=== PATIENT | male | born 1970 | race African-American/Black ===

== ENCOUNTER 2018-05-03 12:34 | Inpatient (IN) | payer OTHER ==
[2018-05-03] VITALS (8 sets, daily range): BP systolic 139–155; BP diastolic 83–95
[~2018-05-03] VITALS: Ht 185.4 cm; Wt 97.9 kg
[~2018-05-03 12:34] MED LIST: ATIVAN1 MG PO; Aspirin PO; NAPROSYN500 MG PO; NAPROXEN500 MG PO; PERCOCET 5/31 TABLET PO; TYLENOL WITH C1 EACH PO; Vicodin,Norco 5/325 PO; ZOFRAN4 MG PO
[2018-05-03 13:16] LABS: COMMENTS - BLOOD GASES C+; DEVICE VENT; SITE LR
[2018-05-03 13:17] LABS: FI02 50 %; MECHANICAL RATE 15 resp/min; MODE AC; PCO2 58 mm Hg (35-45); PEEP 5 CM/H20; PO2 143 mm Hg (80-100); TIDAL VOLUME 500 ML; TOTAL RESP RATE 15 resp/min
[2018-05-03 13:18] LABS: BASE EXCESS -7.6 mEq/L (-3 to +3); BICARBONATE 21.6 mEq/L (22-26); CARBOXY HGB 2.1 % (0-5); METHEMOGLOBIN 1.1 % (0-1.5)
[2018-05-03 13:19] LABS: pH 7.18 (7.35-7.45)
[2018-05-03 13:23] LABS: BASOPHIL (%) 0.2 % (0-1); EOSINOPHIL (%) 0 % (0-5); HEMATOCRIT 43.4 % (38.0-50.0); HEMOGLOBIN 14.5 G/DL (12.5-16.6); IMMATURE GRANULOCYTE (%) 0.5 % (0.0-0.7); LYMPHOCYTE (%) 6.3 % (15-42); LYMPHOCYTE COUNT 0.7 K/uL (1.0-2.8); MCH 28.5 PG (29.0-34.0); MCHC 33.4 G/DL (30.0-36.0); MCV 85.4 FL (86-99); MONOCYTE (%) 4.4 % (3-12); MONOCYTE COUNT 0.5 K/uL (0-0.8); NEUTROPHIL (%) 88.6 % (45-76); NEUTROPHIL COUNT 10.4 K/uL (1.8-6.4); PLATELET COUNT 177 K/uL (156-360); RBC DIS.WIDTH-SD 43.8 % (39-53); RED BLOOD COUNT 5.08 M/uL (4.00-5.50); WHITE BLOOD COUNT 11.8 K/uL (4.1-10.2)
[2018-05-03 13:29] LABS: INTER. NORMALIZED RATIO 1.1
[2018-05-03 13:35] LABS: ALBUMIN 4.2 g/dL (3.2-4.8); CHLORIDE 106 mEq/L (99-109); POTASSIUM 3.4 mEq/L (3.7-5.4); SODIUM 142 mEq/L (136-147)
[2018-05-03 13:36] LABS: MAGNESIUM 1.8 mg/dL (1.3-2.7)
[2018-05-03 13:38] LABS: AMPHETAMINE NEGATIVE (500 ng/mL); BARBITURATES NEGATIVE (200 ng/mL); BENZODIAZEPINES NEGATIVE (150 ng/mL); BUPRENORPHINE NEGATIVE (10 ng/mL); COCAINE NEGATIVE (150 ng/mL); METHADONE NEGATIVE (200 ng/mL); METHAMPHETAMINE NEGATIVE (500 ng/mL); OPIATES (MORPHINE) NEGATIVE (100 ng/mL); OXYCODONE NEGATIVE (100 ng/mL); PHENCYCLIDINE NEGATIVE (25 ng/mL); PROPOXYPHENE NEGATIVE (300 ng/mL); THC CANNABINOIDS PRESUMPTIVE POSITIVE (50 ng/mL); TRICYCLIC ANTIDEPRESSANTS NEGATIVE (300 ng/mL)
[2018-05-03 13:38] LABS: GLUCOSE 128 mg/dL (70-99); TOTAL PROTEIN 7.4 g/dL (6.4-8.3)
[2018-05-03 13:39] LABS: TOTAL BILIRUBIN 0.4 mg/dL (0.0-1.0)
[2018-05-03 13:40] LABS: SERUM ETHYL ALCOHOL < 10 mg/dL
[2018-05-03 13:41] LABS: ALKALINE PHOSPHATASE 65 IU/L (3-129); CREATININE 0.9 mg/dL (0.6-1.3); GFR ESTIMATE (CALCULATED) > 59 mL/min/ (58.99-99999); PHOSPHORUS 2.1 mg/dL (2.5-4.9)
[2018-05-03 13:41] LABS: APPEARANCE CLEAR ((CLEAR)); BILIRUBIN NEGATIVE; BLOOD MODERATE; COLOR STRAW ((YELLOW)); GLUCOSE (STRIP) NEGATIVE; KETONES NEGATIVE; LEUKOCYTES NEGATIVE; NITRITE NEGATIVE; PROTEIN (STRIP) 100; SPECIFIC GRAVITY 1.013 (1.000-1.030); UROBILINOGEN 0.2 MG/DL (0.2-1.0)
[2018-05-03 13:42] LABS: UREA NITROGEN (BUN) 10 mg/dL (9-23)
[2018-05-03 13:43] LABS: AST (GOT) 32 IU/L (2-34)
[2018-05-03 13:44] LABS: ACETAMINOPHEN (TYLENOL) < 10 mcg/mL (10-30); ALT (GPT) 30 IU/L (3-49); TROP-I INTERPRETATION NEGATIVE; TROPONIN-I 0.01 ng/mL (0.0-0.30)
[2018-05-03 13:45] LABS: BACTERIA RARE /HPF; EPITHELIAL CELLS RARE /HPF; HYALINE CASTS 0-5 /LPF; MUCUS TRACE /LPF; RED BLOOD CELLS 0-5 /HPF (0-5); UCUL ADDED? NO; WHITE BLOOD CELLS 0-5 /HPF (0-5)
[2018-05-03 13:50] LABS: CK-MB 9.3 ng/mL (0.0-4.9)
[2018-05-03 14:31] LABS: SALICYLATE < 3.0 MG/DL (15-30)
[2018-05-03 14:43] LABS: CKMB RELATIVE INDEX 1.3 (0.0-3.9); CREATINE KINASE 692 IU/L (1-294); TOTAL CK 692 IU/L (1-294)
[2018-05-03] MEDS ORDERED: VIAGRA25 MG PO (15:12)
[2018-05-03 15:19] LABS: COMMENTS - BLOOD GASES A+C+; DEVICE VENT; FI02 50 %; MECHANICAL RATE 18 resp/min; MODE A/C; PEEP 5 CM/H20; SITE LR; TIDAL VOLUME 500 ML; TOTAL RESP RATE 18 resp/min
[2018-05-03 15:22] LABS: PCO2 62 mm Hg (35-45); PO2 139 mm Hg (80-100); pH 7.23 (7.35-7.45)
[2018-05-03 15:23] LABS: BASE EXCESS -2.9 mEq/L (-3 to +3); METHEMOGLOBIN 1.5 % (0-1.5)
[2018-05-03 17:12] LABS: PROLACTIN 10.3 NG/ML
[2018-05-03 17:44] LABS: HIGH-SENS C-REACTIVE PROTEIN < 1.00 MG/DL (0.02-0.20)
[2018-05-03 19:31] LABS: CSF LACTIC ACID 3.1 mmol/L (0.6-2.2); CSF PROTEIN 34 mg/dL (15-45); GLUCOSE, CSF 83 mg/dL (40-80)
[2018-05-03 20:14] LABS: APPEARANCE CLEAR/COLORLESS; CSF TUBE NUMBER TUBE #4; RED CELL COUNT 1 /MM^3 (0-1); WHITE CELL COUNT 6 /MM^3 (0-5)
[2018-05-03 20:15] LABS: CSF EOSINOPHILS 0 % (0-25); MONONUCLEAR WBC'S 32 % (50-90); POLYNUCLEAR WBC'S 68 % (0-3)
[2018-05-03 22:03] LABS: COMMENTS - BLOOD GASES C+A+; DEVICE VENT; FI02 40 %; MECHANICAL RATE 24 resp/min; MODE AC; PEEP 5 CM/H20; SITE RR; TIDAL VOLUME 550 ML; TOTAL RESP RATE 24 resp/min
[2018-05-03 22:04] LABS: BASE EXCESS 1.7 mEq/L (-3 to +3); BICARBONATE 23.4 mEq/L (22-26); CARBOXY HGB 1.3 % (0-5); METHEMOGLOBIN 1.5 % (0-1.5); PCO2 28 mm Hg (35-45); PO2 103 mm Hg (80-100); pH 7.53 (7.35-7.45)
[2018-05-03 22:08] LABS: HEMATOCRIT 38.4 % (38.0-50.0); HEMOGLOBIN 13.4 G/DL (12.5-16.6); MCH 28.7 PG (29.0-34.0); MCHC 34.9 G/DL (30.0-36.0); MCV 82.2 FL (86-99); PLATELET COUNT 155 K/uL (156-360); RBC DIS.WIDTH-CV 13.9 % (11.8-14.6); RBC DIS.WIDTH-SD 41.5 % (39-53); RED BLOOD COUNT 4.67 M/uL (4.00-5.50); WHITE BLOOD COUNT 8.4 K/uL (4.1-10.2)
[2018-05-03 22:15] LABS: ALBUMIN 3.8 g/dL (3.2-4.8)
[2018-05-03 22:16] LABS: BASOPHIL (%) 0.1 % (0-1); CHLORIDE 109 mEq/L (99-109); EOSINOPHIL (%) 0 % (0-5); IMMATURE GRANULOCYTE (%) 0.2 % (0.0-0.7); LYMPHOCYTE (%) 6.2 % (15-42); LYMPHOCYTE COUNT 0.5 K/uL (1.0-2.8); MONOCYTE (%) 3.7 % (3-12); MONOCYTE COUNT 0.3 K/uL (0-0.8); NEUTROPHIL (%) 89.8 % (45-76); NEUTROPHIL COUNT 7.6 K/uL (1.8-6.4); POTASSIUM 3.3 mEq/L (3.7-5.4); SODIUM 141 mEq/L (136-147)
[2018-05-03 22:19] LABS: GLUCOSE 102 mg/dL (70-99)
[2018-05-03 22:20] LABS: TOTAL BILIRUBIN 0.4 mg/dL (0.0-1.0)
[2018-05-03 22:21] LABS: TOTAL PROTEIN 6.2 g/dL (6.4-8.3)
[2018-05-03 22:22] LABS: ALKALINE PHOSPHATASE 58 IU/L (3-129); CREATININE 0.8 mg/dL (0.6-1.3); GFR ESTIMATE (CALCULATED) > 59 mL/min/ (58.99-99999)
[2018-05-03 22:23] LABS: UREA NITROGEN (BUN) 9 mg/dL (9-23)
[2018-05-03 22:24] LABS: AST (GOT) 30 IU/L (2-34)
[2018-05-03 22:25] LABS: ALT (GPT) 26 IU/L (3-49)
[2018-05-03 22:30] LABS: CK-MB 6.1 ng/mL (0.0-4.9)
[2018-05-03 23:29] LABS: MAGNESIUM 1.6 mg/dl (1.3-2.7); PHOSPHORUS 1.1 mg/dL (2.5-4.9)
[2018-05-04] VITALS (18 sets, daily range): BP systolic 132–168; BP diastolic 82–106
[2018-05-04 00:06] LABS: BASE EXCESS -1.1 mEq/L (-3 to +3); BICARBONATE 22.4 mEq/L (22-26); CARBOXY HGB 1.4 % (0-5); COMMENTS - BLOOD GASES C+A+; DEVICE VENT; FI02 30 %; MECHANICAL RATE 18 resp/min; METHEMOGLOBIN 1.3 % (0-1.5); MODE AC; PCO2 33 mm Hg (35-45); PEEP 5 CM/H20; PO2 93 mm Hg (80-100); SITE RR; TIDAL VOLUME 550 ML; TOTAL RESP RATE 18 resp/min; pH 7.44 (7.35-7.45)
[2018-05-04 04:06] LABS: CKMB RELATIVE INDEX 0.8 (0.0-3.9); CREATINE KINASE 803 IU/L (1-294); TOTAL CK 803 IU/L (1-294)
[2018-05-04 11:03] LABS: HEPATITIS B SURFACE ANTIGEN Nonreactive
[2018-05-04 11:04] LABS: HEPATITIS C ANTIBODY Nonreactive
[2018-05-04 11:05] LABS: ANTI-HEPATITIS A VIRUS (IGM) Nonreactive; ANTI-HEPATITIS B CORE (IGM) Nonreactive
[2018-05-04 11:07] LABS: HIV-1/2 AB/AG COMBO Nonreactive
[2018-05-04 11:32] LABS: BASOPHIL (%) 0.1 % (0-1); EOSINOPHIL (%) 0 % (0-5); HEMOGLOBIN 13.5 G/DL (12.5-16.6); IMMATURE GRANULOCYTE (%) 0.4 % (0.0-0.7); LYMPHOCYTE (%) 8.3 % (15-42); LYMPHOCYTE COUNT 0.8 K/uL (1.0-2.8); MCH 28.5 PG (29.0-34.0); MCHC 34.6 G/DL (30.0-36.0); MCV 82.5 FL (86-99); MONOCYTE (%) 5.4 % (3-12); MONOCYTE COUNT 0.5 K/uL (0-0.8); NEUTROPHIL (%) 85.8 % (45-76); NEUTROPHIL COUNT 8.3 K/uL (1.8-6.4); PLATELET COUNT 155 K/uL (156-360); RBC DIS.WIDTH-SD 42.2 % (39-53); RED BLOOD COUNT 4.73 M/uL (4.00-5.50); WHITE BLOOD COUNT 9.7 K/uL (4.1-10.2)
[2018-05-04 11:41] LABS: ALBUMIN 3.5 g/dL (3.2-4.8); CHLORIDE 113 mEq/L (99-109); MAGNESIUM 1.8 mg/dL (1.3-2.7); SODIUM 144 mEq/L (136-147)
[2018-05-04 11:43] LABS: TOTAL PROTEIN 6.1 g/dL (6.4-8.3)
[2018-05-04 11:45] LABS: GLUCOSE 154 mg/dL (70-99); POTASSIUM 4.1 mEq/L (3.7-5.4); TOTAL BILIRUBIN 0.5 mg/dL (0.0-1.0)
[2018-05-04 11:47] LABS: ALKALINE PHOSPHATASE 61 IU/L (3-129); CREATININE 0.7 mg/dL (0.6-1.3); GFR ESTIMATE (CALCULATED) > 59 mL/min/ (58.99-99999); PHOSPHORUS 2.4 mg/dL (2.5-4.9)
[2018-05-04 11:48] LABS: AST (GOT) 25 IU/L (2-34); UREA NITROGEN (BUN) 9 mg/dL (9-23)
[2018-05-04 11:50] LABS: ALT (GPT) 24 IU/L (3-49)
[2018-05-04 22:09] LABS: HSV CSF Spec Source CSF (())
[2018-05-05] VITALS (24 sets, daily range): BP systolic 138–174; BP diastolic 43–146
[2018-05-05 20:14] LABS: BASOPHIL (%) 0 % (0-1); EOSINOPHIL (%) 0 % (0-5); HEMATOCRIT 35.9 % (38.0-50.0); HEMOGLOBIN 12.3 G/DL (12.5-16.6); IMMATURE GRANULOCYTE (%) 0.8 % (0.0-0.7); LYMPHOCYTE (%) 5.6 % (15-42); LYMPHOCYTE COUNT 0.6 K/uL (1.0-2.8); MCH 28.5 PG (29.0-34.0); MCHC 34.3 G/DL (30.0-36.0); MCV 83.3 FL (86-99); MONOCYTE (%) 5.9 % (3-12); MONOCYTE COUNT 0.6 K/uL (0-0.8); NEUTROPHIL (%) 87.7 % (45-76); NEUTROPHIL COUNT 9.1 K/uL (1.8-6.4); PLATELET COUNT 153 K/uL (156-360); RBC DIS.WIDTH-SD 43.1 % (39-53); RED BLOOD COUNT 4.31 M/uL (4.00-5.50); WHITE BLOOD COUNT 10.4 K/uL (4.1-10.2)
[2018-05-05 20:21] LABS: CHLORIDE 104 mEq/L (99-109); POTASSIUM 3.7 mEq/L (3.7-5.4); SODIUM 142 mEq/L (136-147)
[2018-05-05 20:22] LABS: MAGNESIUM 1.8 mg/dL (1.3-2.7)
[2018-05-05 20:23] LABS: GLUCOSE 146 mg/dL (70-99)
[2018-05-05 20:27] LABS: CREATININE 0.8 mg/dL (0.6-1.3); GFR ESTIMATE (CALCULATED) > 59 mL/min/ (58.99-99999); PHOSPHORUS 1.9 mg/dL (2.5-4.9)
[2018-05-05 20:28] LABS: UREA NITROGEN (BUN) 9 mg/dL (9-23)
[2018-05-06 07:46] VITALS: BP 156/92
[2018-05-06 11:39] VITALS: BP 139/87
[2018-05-06 16:13] VITALS: BP 157/77
[2018-05-06 19:50] VITALS: BP 155/71
[2018-05-06 23:37] VITALS: BP 154/87
[2018-05-07 06:35] LABS: HEMATOCRIT 37.6 % (38.0-50.0); HEMOGLOBIN 12.5 G/DL (12.5-16.6); MCH 27.9 PG (29.0-34.0); MCHC 33.2 G/DL (30.0-36.0); MCV 83.9 FL (86-99); PLATELET COUNT 150 K/uL (156-360); RBC DIS.WIDTH-CV 14.2 % (11.8-14.6); RBC DIS.WIDTH-SD 43.7 % (39-53); RED BLOOD COUNT 4.48 M/uL (4.00-5.50)
[2018-05-07 07:52] VITALS: BP 152/95
[2018-05-07] MEDS ORDERED: KEPPRA1000 MG PO (10:47)
[2018-05-07] MEDS ORDERED: AMLODIPINE BESY10 MG PO (10:47)
== END 2018-05-07 12:19 | disposition home or self-care (01) | DRG 100 ==
LOC: EME 12:34 → 3EAST 15:45 → 4WEST 15:45 → EDOF 15:45 → ENRESERV 15:51 → 4WEST 17:23 → ENRESERV 05-05 20:00 → 3EAST 05-05 21:19
PROVIDERS: Emergency Medicine; Internal Medicine; Obstetrics & Gynecology
PROC: 0BH17EZ Insertion of Endotracheal Airway into Trachea, Via Natural or Artificial Opening (ICD-10-PCS; principal; 2018-05-03)
PROC: 5A1935Z Respiratory Ventilation, Less than 24 Consecutive Hours (ICD-10-PCS; principal; 2018-05-03)
PROC: 009U3ZX Drainage of Spinal Canal, Percutaneous Approach, Diagnostic (ICD-10-PCS; 2018-05-05)
DX: G40.409 Other generalized epilepsy and epileptic syndromes, not intractable, without status epilepticus (principal); J96.01 Acute respiratory failure with hypoxia; F12.90 Cannabis use, unspecified, uncomplicated; I45.6 Pre-excitation syndrome; I10 Essential (primary) hypertension; E87.6 Hypokalemia; F17.200 Nicotine dependence, unspecified, uncomplicated; E87.2 Acidosis
CPT/HCPCS: 36600; 70450; 70553; 71045; 80048; 80053; 80074; 80202; 81003; 82550; 82550 91; 82553; 82803; 82945; 83605; 83735; 83930; 84100; 84145 90; 84146; 84157; 84484; 84999; 85025; 85025 91; 85027; 85610; 85730; 86141; 86592 90; 86617 90; 86618 90; 86713 90; 87040; 87070; 87205; 87389; 87529 90; 87536; 87641; 87899; 89051; 93005; 94002; 94003; 94640; 94760; 94799; 95819; 99281; 99285; G0480; J0133; J0696; J1100; J1953; J2060; J2250; J2310; J2704; J3010; J3370; J3475; J7030; J7050; J7120; S0028